=== PATIENT | male | born 1965 | race Caucasian/White ===

== ENCOUNTER 2017-09-08 10:49 | Emergency (ER) | payer OTHER ==
[2017-09-08 11:13] VITALS: BP 188/91; PULSE 66; RESP 16; TEMP 98.8; O2SAT 96
[2017-09-08] MEDS ORDERED: TDAP ADULT 0.5 ML INJ (BOOSTRIX) IM ONE (11:57)
--- NOTE | 2017-09-08 11:58 | EDPHY ---
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 He is unsure of his last tetanus shot. He continued his shift. The small superficial laceration on the top of his has continued to bleed off and on last night and today. As this was work related, they advised that he be seen for follow-up. He went to the urgent care and they directed him to the emergency room for further evaluation. He drove himself all day without difficulty. He denies decreased or altered mentation. Modifying Factors: Direct pressure with mild relief Comment: ROS: see HPI Constitutional: No fever, no chills, no weight loss Eyes: No blurred vision Respiratory: No shortness of breath, no cough Cardiovascular: No chest pain Gastrointestinal: No nausea, no vomiting no diarrhea Genitourinary: No dysuria Extremities: No myalgias Neurologic: No weakness, no numbness Skin: No rashes Hematologic: No bruising, no bleeding MEDICAL/SURGICAL/SOCIAL HISTORY: Medical history: Generally healthy. Does not take any regular medications. Surgical history: Denies Social history: Employed. CONSTITUTIONAL: Well-developed well-nourished adult male, awake and alert, no obvious distress HEENT: Superficial 4 cm horizontal parietal laceration and normocephalic, PERRL , EOMI. no globe entrapment, no raccoon eyes. no Myers signs.Tympanic membranes clear. No tympanic membrane rupture. Nares patent; no septal hematoma. Oropharynx clear, no exudate and moist pink mucosa. No malocclusion. no dental trauma. Airway patent. No lymphadenopathy. NECK: supple, no midline tenderness, flexion 45 degrees, extension 45 degrees, right and left lateral flexion 45 degrees. No meningismus. Cardiovascular: Normal S1/S2, regular rate, regular rhythm, without murmur rub or gallop. PULMONARY/CHEST: Symmetrical and nontender. no crepitus. Clear to auscultation bilaterally. Good air movement. No accessory muscle usage. ABDOMEN: Soft, nondistended, nontender, no ecchymosis, no rebound, no guarding , no peritoneal signs, no masses or organomegaly. No CVAT. PELVIC: no pain with rocking; bilateral hips flexion 125 degrees, extension 30 degrees, with no pain internal rotation and no pain external rotation. BACK: No midline tenderness, no paraspinous spasm, deep tendon reflexes 2/2, no pain with straight leg raise EXTREMITIES: 2/2 pulses, no deformities, no clubbing, no cyanosis or edema. NEUROLOGICAL: no focal neuro deficits. GCS 15. SKIN: Warm and dry, no erythema. no rash. Good capillary refill. Source: Patient Exam Limitations: No limitations - Personal History Current Tetanus Diphtheria and Acellular Pertussis (TDAP): No - Medical/Surgical History Other PMH: healthy "white coat syndrome" - Social History Smoking Status: Never smoked Constitutional: Initial Vital Signs Temperature (C) 37.1 C 09/08/17 11:08 Heart Rate 66 09/08/17 11:08 Respiratory Rate 16 09/08/17 11:08 Blood Pressure 188/91 H 09/08/17 11:08 O2 Sat (%) 96 09/08/17 11:08 O2 Delivery Mode Room Air Allergies/Adverse Reactions: No Known Allergies Allergy (Unverified 09/08/17 11:13) Home Medications: Medication Instructions Recorded NK [No Known Home Meds] 09/08/17 Medical Decision Making - Diagnostics Imaging Results: Imaging Impressions Head CT 09/08/17 11:58 Impression: Negative. No acute fracture or evidence of acute intracranial injury. Procedures: Procedure: Laceration repair. Verbal consent was obtained from the patient. The superficial 3 cm linear laceration on the occipital scalp was anesthetized in the usual fashion using let topical. The wound was irrigated, draped and explored to its base with a gloved finger. There were no deep structures involved. The wound was repaired with skin glue. Good hemostasis achieved and patient tolerated procedure well. The procedure was performed by myself. ED Course/Re-evaluation: Area clean with mild soap and water; let topical applied and then irrigated thoroughly. Superficial laceration was closed with surgical glue. Head CT scan shows no acute intracranial process. Tetanus booster given Advised continue wound care No signs of neurovascular compromise/tenting of skin/compartment syndrome/ extremities and joints examined above and below area of concern and are neurovascularly intact. Differential Diagnosis: Head injury including but not limited to concussion, skull fracture, intraparenchymal contusion, subarachnoid, subdural and epidural hematoma. - Data Points Medications Given: Discontinued Medications Diphtheria/Tetanus/Acell Pertussis (Boostrix) 0.5 ml IM .ONCE ONE Stop: 09/08/17 11:58 Last Admin: 09/08/17 12:57 Dose: 0.5 ml Departure - Departure Disposition: Home, Routine, Self-Care Clinical Impression: Scalp laceration Qualifiers: Encounter type: initial encounter Qualified Code(s): S01.01XA - Laceration without foreign body of scalp, initial encounter Scalp contusion Qualifiers: Encounter type: initial encounter Qualified Code(s): S00.03XA - Contusion of scalp, initial encounter Condition: Good Instructions: Laceration (ED), Skin Adhesive Care (ED), Facial Laceration (ED) Additional Instructions: Keep the dressing in place and dry for 48 hours. After 48 hours, you may remove the dressing; wash the site daily with mild soap and water; then pat dry. Take ibuprofen 600 mg every 6-8 hours with food as needed for pain, headache. Apply ice for 30 minutes at a time; 2-3 times per day for the next 1-2 days. Monitor for signs and symptoms of concussion. Referrals: ISAIAS JASSO [Other] - As per Instructions [facility],. [Clinic] - As per Instructions
[2017-09-08] MEDS ORDERED: SKIN ADHESIVE (DERMABOND) 1 EACH TP ONE (12:38)
== END 2017-09-08 13:09 | disposition home or self-care (01) ==
PROC: 0HQ0XZZ Repair Scalp Skin, External Approach (ICD-10-PCS; principal; 2017-09-08)
DX: S01.01XA Laceration without foreign body of scalp, initial encounter (principal); Z23 Encounter for immunization; W18.09XA Striking against other object with subsequent fall, initial encounter; Y92.69 Other specified industrial and construction area as the place of occurrence of the external cause; Y99.0 Civilian activity done for income or pay; Y93.89 Activity, other specified